=== PATIENT | female | born 1935 | race Caucasian/White ===

== ENCOUNTER 2017-05-29 15:44 | Emergency (ER) | payer OTHER ==
[~2017-05-29] VITALS: Ht 160 cm; Wt 67.8 kg
[~2017-05-29 15:44] MED LIST: 3-DAY VAGINAL C21 GM VG; ADULT LOW DOSE81 M1 PO; AMBIEN5 MG PO; AMLODIPINE BES2.5 MG PO; ASPIRIN81 M2 PO; Ambien PO; Aspirin E.C. PO; Aspirin PO; BISAC-EVAC10 MG PR; CIPROFLOXACIN500 M1 PO; CRESTOR20 MG PO; DICYCLOMINE HCL10 MG PO; DIOVAN HCT 11 TABLET PO; DIOVAN HCT 31 TABLE1 PO; DOCUSATE SODIU100 MG PO; Diovan HCT 160/12.5 PO; ESCITALOPRAM OX10 MG PO; EXTRA STRENGTH500 M1 PO; FLONASE16 G1 BOTH NARES; FUROSEMIDE20 MG PO; Feosol PO; GABAPENTIN300 MG PO; GLUCOPHAGE1000 MG PO; GLUCOPHAGE500 MG PO; HYDROCHLOROTH12.5 M3 PO; IMDUR30 MG PO; IRON325 M1 PO; K-DUR10 MEQ PO; K-DUR20 MEQ PO; LEVAQUIN750 MG PO; LIDOCAINE700 MG TD; LOPRESSOR100 M1 PO; LORAZEPAM0.5 MG PO; LOTRISONE LOTIO30 ML TP; Lopressor PO; METOPROLOL SUC200 MG PO; METOPROLOL SUCC50 MG PO; MIRALAX17 GM PO; MORPHINE SULFA1 DOSE IV; NEURONTIN300 MG PO; NITROSTAT,NITR0.4 M1 SL; NITROSTAT0.4 MG SL; NOVOLOG PE100 UNITS/ SC; NYSTATIN15 GM TP; Neurontin PO; ONDANSETRON4 MG/2 ML IV; PLAVIX75 MG PO; PRAVACHOL40 MG PO; PROCRIT40000 UNI1 SC; PROTONIX40 MG PO; SENNA PLUS TAB1 EACH PO; SPIRIVA1 INHALATI IH; THERAGRAN1 TABLET PO; TIMOPTIC-0100 DROP/1 BOTH EYES; TYLENOL EXTRA500 MG PO; TYLENOL REGULA325 MG PO; Tylenol Regular Stre PO; VALSARTAN160 MG PO; VALSARTAN320 MG PO; VITAMIN D-32000 UNI2 PO; XALATAN2.5 ML BOTH EYES; ZOFRAN4 MG PO; ZOLPIDEM TARTRA10 MG PO
[2017-05-29 16:23] LABS: HEMATOCRIT 27.2 % (36.0-46.0); MCH 31.5 PG (29.0-34.0); MCHC 34.2 G/DL (30.0-36.0); MEAN PLAT.VOLUME 10.3 uM^3 (9.5-12.4); PLATELET COUNT 93 K/uL (156-360); RBC DIS.WIDTH-CV 14.7 % (11.8-14.6); RBC DIS.WIDTH-SD 48.5 % (39-53); WHITE BLOOD COUNT 3.2 K/uL (4.1-10.2)
[2017-05-29 16:27] LABS: MCV 92.2 FL (83-99); RED BLOOD COUNT 2.95 M/uL (3.80-5.20)
[2017-05-29 16:33] LABS: CHLORIDE 110 mEq/L (99-109); SODIUM 135 mEq/L (136-147)
[2017-05-29 16:34] LABS: GLUCOSE 152 mg/dL (70-99)
[2017-05-29 16:36] LABS: ANION GAP 3 MEQ/L (2-14)
[2017-05-29 16:38] LABS: GFR ESTIMATE (CALCULATED) > 59 mL/min/
[2017-05-29 16:39] LABS: UREA NITROGEN (BUN) 25 mg/dL (9-23)
[2017-05-29 18:57] LABS: INTER. NORMALIZED RATIO 1.1; PROTHROMBIN TIME 12.6 SEC (10.2-12.9)
[2017-05-29 19:10] LABS: TROP-I INTERPRETATION NEGATIVE; TROPONIN-I < 0.01 ng/mL (0.0-0.30)
[2017-05-29 20:09] VITALS: BP 169/68
== END 2017-05-29 20:10 | disposition home or self-care (01) ==
LOC: EME 15:44
PROVIDERS: Emergency Medicine
DX: K92.1 Melena (principal); K21.9 Gastro-esophageal reflux disease without esophagitis; J44.9 Chronic obstructive pulmonary disease, unspecified; I10 Essential (primary) hypertension; F32.9 Major depressive disorder, single episode, unspecified; G43.909 Migraine, unspecified, not intractable, without status migrainosus; Z79.82 Long term (current) use of aspirin; Z88.0 Allergy status to penicillin
CPT/HCPCS: 80048; 84484; 85027; 85610; 85730; 86900; 86901; 86920; 99281; 99284

== ENCOUNTER 2018-06-10 19:13 | Observation (INO) | payer OTHER ==
[~2018-06-10] VITALS: Ht 160 cm; Wt 68.1 kg
[~2018-06-10 19:13] MED LIST changes: +CELEXA10 MG PO
[2018-06-10 20:29] LABS: BASOPHIL (%) 0.7 % (0-1); EOSINOPHIL (%) 2.6 % (0-5); EOSINOPHIL COUNT 0.1 K/uL (0-0.3); HEMOGLOBIN 10.9 G/DL (11.9-15.5); LYMPHOCYTE (%) 40.4 % (15-42); LYMPHOCYTE COUNT 1.2 K/uL (1.0-2.8); MCH 30.4 PG (29.0-34.0); MCHC 34.1 G/DL (30.0-36.0); MCV 89.4 FL (83-99); MONOCYTE (%) 12.4 % (3-12); MONOCYTE COUNT 0.4 K/uL (0-0.8); NEUTROPHIL (%) 43.9 % (45-76); NEUTROPHIL COUNT 1.4 K/uL (1.8-6.4); PLATELET COUNT 88 K/uL (156-360); RBC DIS.WIDTH-CV 12.8 % (11.8-14.6); RBC DIS.WIDTH-SD 42.4 % (39-53); RED BLOOD COUNT 3.58 M/uL (3.80-5.20); WHITE BLOOD COUNT 3.1 K/uL (4.1-10.2)
[2018-06-10 20:34] LABS: INTER. NORMALIZED RATIO 1.3
[2018-06-10 20:36] LABS: PTT 28.6 SEC (25-37)
[2018-06-10 20:37] LABS: CHLORIDE 107 mEq/L (99-109); POTASSIUM 3.8 mEq/L (3.7-5.4); SODIUM 138 mEq/L (136-147)
[2018-06-10 20:38] LABS: GLUCOSE 100 mg/dL (70-99)
[2018-06-10 20:42] LABS: CREATININE 0.8 mg/dL (0.6-1.3); GFR ESTIMATE (CALCULATED) > 59 mL/min/
[2018-06-10 20:43] LABS: UREA NITROGEN (BUN) 21 mg/dL (9-23)
[2018-06-10 20:50] LABS: TROP-I INTERPRETATION NEGATIVE; TROPONIN-I < 0.01 ng/mL (0.0-0.30)
[2018-06-10] MEDS ORDERED: TYLENOL EXTRA500 MG PO (22:01)
[2018-06-10] MEDS ORDERED: COZAAR100 MG PO (22:03)
[2018-06-10] MEDS ORDERED: CRESTOR20 MG PO (22:03)
[2018-06-10] MEDS ORDERED: VOLTAREN 1% GE100 GM TP (22:04)
[2018-06-10] MEDS ORDERED: FOLIC ACID1 MG PO (22:04)
[2018-06-10] MEDS ORDERED: B-121000 MC2 PO (22:04)
[2018-06-10] MEDS ORDERED: FEOSOL325 MG PO (22:05)
[2018-06-11 00:26] LABS: TROP-I INTERPRETATION NEGATIVE; TROPONIN-I < 0.01 ng/mL (0.0-0.30)
[2018-06-11 02:39] LABS: APPEARANCE CLEAR ((CLEAR)); BILIRUBIN NEGATIVE; BLOOD SMALL; COLOR YELLOW ((YELLOW)); GLUCOSE (STRIP) NEGATIVE; KETONES NEGATIVE; LEUKOCYTES NEGATIVE; NITRITE NEGATIVE; PROTEIN (STRIP) NEGATIVE; SPECIFIC GRAVITY 1.009 (1.000-1.030); UROBILINOGEN 0.2 MG/DL (0.2-1.0)
[2018-06-11 03:31] LABS: BACTERIA NONE SEEN /HPF; EPITHELIAL CELLS RARE /HPF; MUCUS TRACE /LPF; RED BLOOD CELLS 0-5 /HPF (0-5); UCUL ADDED? YES
[2018-06-11 04:25] VITALS: BP 169/70
[2018-06-11 06:06] LABS: HEMATOCRIT 31.7 % (36.0-46.0); HEMOGLOBIN 10.6 G/DL (11.9-15.5); MCH 30.4 PG (29.0-34.0); MCHC 33.4 G/DL (30.0-36.0); MCV 90.8 FL (83-99); PLATELET COUNT 86 K/uL (156-360); RBC DIS.WIDTH-CV 12.9 % (11.8-14.6); RBC DIS.WIDTH-SD 43.4 % (39-53); RED BLOOD COUNT 3.49 M/uL (3.80-5.20); WHITE BLOOD COUNT 3.2 K/uL (4.1-10.2)
[2018-06-11 06:22] LABS: TROP-I INTERPRETATION NEGATIVE; TROPONIN-I < 0.01 ng/mL (0.0-0.30)
[2018-06-11 06:26] LABS: CHLORIDE 105 MEQ/L (99-109); CREATININE 0.7 MG/DL (0.6-1.3); GFR ESTIMATE (CALCULATED) > 59 mL/min/; GLUCOSE 122 mg/dL (70-99); POTASSIUM 3.4 MEQ/L (3.7-5.4); SODIUM 138 MEQ/L (136-147); UREA NITROGEN (BUN) 19 mg/dL (9-23)
[2018-06-11 07:22] VITALS: BP 171/69
[2018-06-11 11:29] VITALS: BP 154/71
[2018-06-11] MEDS ORDERED: AMLODIPINE BESYL5 MG PO (11:36)
== END 2018-06-11 15:09 | disposition home or self-care (01) ==
LOC: EME → EDBD 19:13 → EDOF 21:22 → 4SOUTH 21:22
PROVIDERS: Emergency Medicine; Hospitalist
DX: R07.89 Other chest pain (principal); M25.562 Pain in left knee; I25.10 Atherosclerotic heart disease of native coronary artery without angina pectoris; I25.2 Old myocardial infarction; Z95.5 Presence of coronary angioplasty implant and graft; I73.9 Peripheral vascular disease, unspecified; I65.29 Occlusion and stenosis of unspecified carotid artery; Q27.33 Arteriovenous malformation of digestive system vessel; I10 Essential (primary) hypertension; D69.6 Thrombocytopenia, unspecified; K74.60 Unspecified cirrhosis of liver; Z85.05 Personal history of malignant neoplasm of liver; M19.90 Unspecified osteoarthritis, unspecified site; E78.5 Hyperlipidemia, unspecified; Z79.82 Long term (current) use of aspirin; Z79.01 Long term (current) use of anticoagulants; Z88.0 Allergy status to penicillin; Z88.1 Allergy status to other antibiotic agents; Z88.8 Allergy status to other drugs, medicaments and biological substances; Z91.81 History of falling
CPT/HCPCS: 71045; 71275; 73564; 80048; 81003; 84484; 85025 91; 85027; 85379; 85610; 85730; 87040; 87086; 93005; 99281; 99285; G0378; G8978 GP CH; G8979 GP CH; G8980 GP CH; G8987 GO CH; G8988 GO CH; G8989 GO CH; J1644

== ENCOUNTER 2018-06-22 16:32 | Observation (INO) | payer OTHER ==
[2018-06-22] VITALS (8 sets, daily range): BP systolic 122–165; BP diastolic 43–68
[~2018-06-22] VITALS: Ht 160 cm; Wt 65.1 kg
[~2018-06-22 16:32] MED LIST changes: +AMLODIPINE BESYL5 MG PO; +B-121000 MC2 PO; +COZAAR100 MG PO; +FEOSOL325 MG PO; +FOLIC ACID1 MG PO; +VOLTAREN 1% GE100 GM TP
[2018-06-22 18:06] LABS: HEMATOCRIT 23.5 % (36.0-46.0); HEMOGLOBIN 7.9 G/DL (11.9-15.5); MCH 30.9 PG (29.0-34.0); MCHC 33.6 G/DL (30.0-36.0); MCV 91.8 FL (83-99); PLATELET COUNT 119 K/uL (156-360); RBC DIS.WIDTH-CV 13.3 % (11.8-14.6); RBC DIS.WIDTH-SD 44.2 % (39-53); RED BLOOD COUNT 2.56 M/uL (3.80-5.20); WHITE BLOOD COUNT 3.7 K/uL (4.1-10.2)
[2018-06-22 18:19] LABS: CHLORIDE 104 mEq/L (99-109); POTASSIUM 4.8 mEq/L (3.7-5.4); SODIUM 133 mEq/L (136-147)
[2018-06-22 18:20] LABS: GLUCOSE 120 mg/dL (70-99)
[2018-06-22 18:24] LABS: CREATININE 1.1 mg/dL (0.6-1.3); GFR ESTIMATE (CALCULATED) 50 mL/min/
[2018-06-22 18:25] LABS: UREA NITROGEN (BUN) 22 mg/dL (9-23)
[2018-06-22 18:30] LABS: TROP-I INTERPRETATION NEGATIVE; TROPONIN-I < 0.01 ng/mL (0.0-0.30)
[2018-06-22] MEDS ORDERED: LO-DOSE ASPIRIN81 M2 PO (18:46)
[2018-06-22] MEDS ORDERED: LATANOPROST2.5 ML BOTH EYES (18:47)
[2018-06-22] MEDS ORDERED: LOSARTAN POTAS100 MG PO (18:48)
[2018-06-22] MEDS ORDERED: CITALOPRAM HBR10 MG PO (18:48)
[2018-06-22] MEDS ORDERED: TIMOLOL MALEATE15 M1 BOTH EYES (18:48)
[2018-06-22] MEDS ORDERED: ROSUVASTATIN CA20 MG PO (18:49)
[2018-06-22] MEDS ORDERED: PANTOPRAZOLE SO40 MG PO (18:49)
[2018-06-22] MEDS ORDERED: CYANOCOBALAM1000 MCG PO (18:50)
[2018-06-22] MEDS ORDERED: VALSARTAN160 MG PO (18:50)
[2018-06-23 00:35] VITALS: BP 140/62
[2018-06-23 01:06] LABS: TROP-I INTERPRETATION NEGATIVE; TROPONIN-I < 0.01 ng/mL (0.0-0.30)
[2018-06-23 01:36] VITALS: BP 142/60
[2018-06-23 03:58] LABS: HEMATOCRIT 31.2 % (36.0-46.0); HEMOGLOBIN 10.5 G/DL (11.9-15.5); HEMOGLOBIN 10.6 G/DL (11.9-15.5); MCH 30.8 PG (29.0-34.0); MCV 90.1 FL (83-99); MCV 90.7 FL (83-99); PLATELET COUNT 127 K/uL (156-360); RBC DIS.WIDTH-CV 14.4 % (11.8-14.6); RBC DIS.WIDTH-SD 47.7 % (39-53); RED BLOOD COUNT 3.44 M/uL (3.80-5.20)
[2018-06-23 04:05] LABS: ALBUMIN 3.5 g/dL (3.2-4.8)
[2018-06-23 04:06] LABS: CHLORIDE 105 mEq/L (99-109); SODIUM 138 mEq/L (136-147)
[2018-06-23 04:08] LABS: GLUCOSE 135 mg/dL (70-99); TOTAL PROTEIN 8.1 g/dL (6.4-8.3)
[2018-06-23 04:10] LABS: TOTAL BILIRUBIN 0.8 mg/dL (0.0-1.0)
[2018-06-23 04:11] LABS: ALKALINE PHOSPHATASE 80 IU/L (3-129)
[2018-06-23 04:12] LABS: GFR ESTIMATE (CALCULATED) 56 mL/min/
[2018-06-23 04:13] LABS: AST (GOT) 22 IU/L (2-34); UREA NITROGEN (BUN) 23 mg/dL (9-23)
[2018-06-23 04:15] LABS: ALT (GPT) 11 IU/L (3-49)
[2018-06-23 04:20] LABS: TROP-I INTERPRETATION NEGATIVE; TROPONIN-I < 0.01 ng/mL (0.0-0.30)
[2018-06-23 05:20] VITALS: BP 142/63
[2018-06-23 08:27] VITALS: BP 163/70
== END 2018-06-23 10:19 | disposition home or self-care (01) ==
LOC: EME 16:32 → EDOF 20:16 → 4SOUTH 21:45
PROVIDERS: Internal Medicine; Physician Assistant
PROC: 30233N1 Transfusion of Nonautologous Red Blood Cells into Peripheral Vein, Percutaneous Approach (ICD-10-PCS; principal; 2018-06-22)
DX: D64.9 Anemia, unspecified (principal); I25.10 Atherosclerotic heart disease of native coronary artery without angina pectoris; I25.2 Old myocardial infarction; Z95.5 Presence of coronary angioplasty implant and graft; I73.9 Peripheral vascular disease, unspecified; I65.29 Occlusion and stenosis of unspecified carotid artery; C22.0 Liver cell carcinoma; K74.60 Unspecified cirrhosis of liver; I10 Essential (primary) hypertension; K92.1 Melena; Q27.33 Arteriovenous malformation of digestive system vessel; J44.9 Chronic obstructive pulmonary disease, unspecified; E78.5 Hyperlipidemia, unspecified; Z88.0 Allergy status to penicillin; Z88.1 Allergy status to other antibiotic agents; Z88.8 Allergy status to other drugs, medicaments and biological substances
CPT/HCPCS: 71046; 80048; 80053; 84484; 85014; 85018; 85027; 86920; 93005; 99281; 99285; G0378; J1940; P9016